=== PATIENT | male | born 1995 | race Two or more races ===

== ENCOUNTER 2019-12-05 05:45 | Emergency (ER) | payer OTHER ==
[~2019-12-05] VITALS: Ht 162.6 cm; Wt 68.0 kg
[2019-12-05] MEDS ORDERED: ZITHROMAX200 MG PO (06:47)
[2019-12-05] MEDS ORDERED: ALBUTEROL2.5 MG/3 M IH (06:48)
[2019-12-05] MEDS ORDERED: XOPENEX0.63 MG/3 IH (07:54)
[2019-12-05] MEDS ORDERED: ZYNCOF 20-400120 ML PO (07:54)
[2019-12-05] MEDS ORDERED: KETO10TA2 PO (07:54)
[2019-12-06] MEDS ORDERED: XOPENEX0.63 MG/3 IH (03:01)
== END 2019-12-05 08:08 | disposition home or self-care (01) ==
LOC: ER 05:45
DX: R07.81 Pleurodynia (principal)

== ENCOUNTER 2019-12-06 01:11 | Emergency (ER) | payer OTHER ==
[~2019-12-06] VITALS: Ht 162.6 cm; Wt 68.0 kg
[~2019-12-06 01:11] MED LIST: ALBUTEROL2.5 MG/3 M IH; KETO10TA2 PO; XOPENEX0.63 MG/3 IH; ZITHROMAX200 MG PO; ZYNCOF 20-400120 ML PO
[2019-12-06] MEDS ORDERED: XOPENEX0.63 MG/3 IH (03:01)
== END 2019-12-06 03:20 | disposition home or self-care (01) ==
LOC: ER 01:11
DX: M54.89 Other dorsalgia (principal); R06.02 Shortness of breath